=== PATIENT | male | born 1945 | race African-American/Black ===

== ENCOUNTER 2016-04-22 13:56 | Outpatient (RCR) | payer MEDICARE, OTHER ==
[~2016-04-22 13:56] MED LIST: ALAVERT10 M1 ORAL; ATENOLOL25 MG ORAL; ATORVASTATIN CA40 MG ORAL; ATORVASTATIN CA80 MG ORAL; CARBAMAZEPINE200 M4 ORAL; CELEBREX200 MG ORAL; COLACE100 MG ORAL; COUMADIN10 MG ORAL; COUMADIN5 MG ORAL; DILAUDID2 MG IV; DILAUDID2 MG SUBQ; DOCUSATE SODIU100 MG ORAL; FEOSOL45 MG PO; FUROSEMIDE20 M1 ORAL; GLUCOSAMINE S1000 M1 PO; KEPPRA500 MG ORAL; LEVETIRACETAM500 M1 ORAL; LIDODERM TOPIC; LORATADINE10 M1 PO; LOVENOX120 MG/0.8 SUBQ; MOM30 ML ORAL; NEURONTIN100 MG ORAL; ONDANSETRON4 MG/2 M2 IVP; OXYCODONE HCL5 MG ORAL; OXYCONTIN20 MG ORAL; PERI-COLACE1 EA ORAL; REPLENEX PO; RESTORIL7.5 MG ORAL; SALONPAS PATCH1 EAC1 TP; TEGRETOL200 MG PO; TENORMIN100 MG ORAL; TENORMIN25 MG ORAL; TYLENOL EXTRA500 MG ORAL; VITAMIN D250000 UNI1 ORAL; WELCHOL3.75 GM ORAL; ZETIA10 MG ORAL
== END 2016-05-20 | disposition home or self-care (01) ==
LOC: PTY 13:56
DX: M25.569 Pain in unspecified knee (principal)

== ENCOUNTER 2016-07-30 08:30 | Outpatient (RCR) | payer MEDICARE, OTHER | END 2016-08-17 | disposition home or self-care (01) | LOC: PTY 08:30 | DX: M25.562 Pain in left knee (principal); Z96.652 Presence of left artificial knee joint; Z79.01 Long term (current) use of anticoagulants | CPT/HCPCS: 97110; 97140; 97162; G8978; G8979 ==

== ENCOUNTER 2016-08-18 09:30 | Outpatient (RCR) | payer MEDICARE, OTHER | END 2016-09-17 | disposition home or self-care (01) | LOC: PTY 09:30 | DX: M25.562 Pain in left knee (principal); Z96.652 Presence of left artificial knee joint; Z79.01 Long term (current) use of anticoagulants | CPT/HCPCS: 97110; 97140; G0283; G8978; G8979 ==

== ENCOUNTER 2016-09-26 09:24 | Outpatient (RCR) | payer MEDICARE, OTHER | END 2016-10-17 | disposition home or self-care (01) | LOC: PTY 09:24 | DX: Z47.1 Aftercare following joint replacement surgery (principal); Z96.651 Presence of right artificial knee joint | CPT/HCPCS: 97110; 97140; G0283; G8979; G8980 ==